=== PATIENT | female | born 1965 ===

== ENCOUNTER 2024-09-06 09:41 | Inpatient (IN) | payer BC, SELFPAY ==
[2024-08-27 08:09] VITALS: BMI 18.8
[2024-09-06] VITALS (11 sets, daily range): BP systolic 130–166; BP diastolic 63–93; PULSE 54–91; RESP 12–18; TEMP 36.4–37.9; O2SAT 92–99; BMI 18.8; BMI 19.3
--- NOTE | 2024-09-06 06:00 | DI.RAD.S_ITS ---
PROCEDURE: XR KNEE RT 1TO2V INDICATIONS: TKA TECHNIQUE: 2 view(s) of the knee acquired. COMPARISON: [facility] Gabriel Mendieta, CR, XR KNEE 4+ VIEWS RIGHT, 04/09/2024, 11:55. FINDINGS: Bones: Patient is status post knee joint arthroplasty. Hardware components are in expected positions. Visualized bony structures are intact. Soft tissues: Overlying postoperative changes are noted. IMPRESSION: Expected post-operative appearance of a knee arthroplasty. Dictated by: Xavi José M.D. on 09/06/2024 at 17:05 Approved by: Xavi José M.D. on 09/06/2024 at 17:06
[2024-09-06] MEDS: ACETAMINOPHEN 325 MG TABLET 975 MG PO (10:20)
[2024-09-06] MEDS: LACTATED RINGERS 1,000 ML 42 ML IV ×2 (10:20→14:10)
--- NOTE | 2024-09-06 12:16 | PM.PREOP ---
Pre-operative Note Interval Note History & Physical reviewed/Exam performed by Physician: Yes Changes to H&P: No
[2024-09-06] MEDS: CEFAZOLIN 2 GM/100 ML PREMIX 100 ML IV ×3 (12:45→23:28)
[2024-09-06] MEDS: TRANEXAMIC ACID 1,000 MG VIAL 1000 MG INJ ×2 (12:45→14:15)
--- NOTE | 2024-09-06 13:07 | SUR.OPER ---
Supine on padded OR bed. Pillow under head, arms secured on padded armboards <90 degree abduction. Safety belt across torso. Non-operative leg secured with tape over blanket over lower leg. Operative leg secured in DeMayo/Roosevelt/Nathe positioner. Foam padded brace at thigh of operative leg.
[2024-09-06] MEDS: VANCOMYCIN 1,000 MG VIAL 1000 MG TOP (13:45)
[2024-09-06] MEDS: ROPIVACAINE/EPI/CLONIDINE/KET 50 ML SYRINGE INJ (13:46)
[2024-09-06] MEDS: ACETAMINOPHEN IV 1,000 MG/100 ML VIAL 400 MG IV (17:05)
[2024-09-06] MEDS: hydrOXYzine HCL 25 MG TABLET 50 MG PO (17:10)
[2024-09-06] MEDS: OXYCODONE IR 5 MG TABLET PO (17:10)
--- NOTE | 2024-09-06 17:26 | P.OP_ITS ---
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 Revision of femoral and tibial component of right total knee arthroplasty (46497) 2. Intraosseous administration vancomycin (08889) 3. Removal of hardware from right femur (33972) 4. Prophylactic fixation of right femur (69223) Same procedure as scheduled: Yes Surgeon: Wesley Mendez Complex Manager: Myriam Donald Anesthesia Type: General, Peripheral nerve block and Local Operative Notes Estimated Blood Loss (mL): 350 Tourniquet time (min): 120 Procedure in detail: Revision of femoral and tibial components of right total knee arthroplasty for global instability and aseptic loosening of the tibial component using robotic assistance with removal of a prior interference screw from the femur and placement of a prophylactic cerclage cable on the femur Implants: * Size 4 Legion Oxinium femoral component with 10 mm augments distally on both the medial and lateral side, no posterior augments, and a 14 mm x 160 mm stem * Size 18 femoral cone * Kinamed Iso elastic cerclage cable * Size 4 Tibial Component with 14 mm x 120 mm stem * Size 18 mm constrained Amena 2 Polyethylene Insert * Retained Depuy Patella Procedure Summary: This 59-year-old female patient has had multiple 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 She had tested previously for Yanick Danlos and this came back as negative however she has had numerous orthopedic surgeries which have failed including an ACL reconstruction in this knee as well as shoulder and foot and ankle surgeries which have failed due to soft tissue laxity as well. She presented to me with global laxity of the knee with gross hyperextension and instability. We attempted to treat her instability with bracing however she did not tolerate this. We had a difficult decision to make with regards to whether or not to use a hinged total knee today. I discussed with her over multiple conversations that that would very reliably provide a knee construct that would not loosen over time as has occurred with her knee prior to this surgery however I was very concerned about the longevity of a hinged total knee in a patient of her age and activity levels. I inquired with multiple device manufacture's re garding whether or not there is a revision femur that would allow a modular conversion to a hinged total knee after the index procedure and determined that this is not something that is made by any company currently. This eliminated the possibility doing a standard articulation revision knee today and then having the ability to do a polyethylene exchange and insert an axle at some point in the future the marginally convert this to a hinge should this construct loosen. We therefore discussed the option of either a hinge or a standard articulation revision total knee today. After careful review of the relative merits of those options the patient elected to move forward with a revision total knee rather than a hinge. I did have a hinge on backup for today's case if I found that I was not able to achieve satisfactory stability but plan to use the most constrained polyethylene insert due to concerns that a hinged my not have satisfactory longevity for her. Intraoperatively today I utilized robotic assistance to plan out the resections on the femur and the tibia and 2 help achieve a balanced construct. The femur was removed with some bone loss anteriorly but no significant bone loss posteriorly and the robotic system actually planned for a femoral component that did not require any posterior augments in order to achieve good bony contact. 10 mm augments were necessary distally in order to fill up the extension gap. The tibia was completely de bonded from the cement and after freeing up the cement interface I noted that there was none remaining on the base plate when I removed it. The tibia was cut using navigation and dropped down below the planned cut in order to achieve a good bone implant interface. Cone and stem fixation were used on both sides in the cones were prepped free hand to allow them to orient themselves with the robotic guided resections rather than the anatomic axes of the femur and the tibia. She had previously had an ACL reconstruction which had failed and there was a screw left from this which would have interfered with the femoral cone so that was removed using a screwdriver. I trialed with multiple different sizes of polyethylene inserts and found that a 21 mm insert was too tight as it caused significant tension on the extensor mechanism in flexion and would have not allowed her to achieve full flexion. Given her soft tissue hypermobility I utilized the most constrained polyethylene insert in the system Procedure in Detail: The patient was met in the preoperative holding area the day of the procedure and all questions were answered. The patient?s nares were swabbed with betadine in order to decolonize them from MRSA. Informed consent was signed and the right limb was marked with indelible ink.? The patient was brought back to the operating room where anesthesia was induced. The patient was transferred to the operating table and all bony prominences were padded. The operative site was prepped and draped in the usual sterile fashion. A second prep stick was utilized following drape placement. The incision was marked corresponding to the medial aspect of the tibial tubercle and the cassia mejía. Ioban was wrapped circumferentially around the knee. Prior to incision, tranexamic acid and cefazolin were administered. Templating images were displayed. A timeout procedure was performed verifying the patient?s identity, medical comorbidities, allergies, relevant medications, anesthesia type and the surgical plan. All present were in agreement. The assistance of a physician assistant press operator offset was required for positioning, room setup, soft tissue retraction and wound closure. Without this assistance, the procedure would have been significantly more challenging and time consuming.?? The tourniquet was inflated prior to incision. An intraosseous needle was introduced following tourniquet inflation and 50 mL of dilute vancomycin was infiltrated into the osseous canal in order to back fill all of the soft tissues in the knee with vancomycin. I reused the old incision from the patient's prior total knee arthroplasty. I did not excise it as she is extremely thin and I did not want to excessively stretch her skin. I dissected through subcutaneous tissues down to the extensor mechanism and identified the lateral border of the VMO. I performed a medial parapatellar arthrotomy extending down to the tibial base plate and resected around medially performing a medial peel. I then brought the knee into extension and everted the patella and removed scar from around the old patellar implant. I confirmed that it was well fixed. Placed J Luis's on the medial and lateral gutters respectively and excise the gutters, sending each of them for culture. I do not anticipate that these cultures will result positive and did not note any signs of infection during inspection of the knee. I placed pins for the robotic arrays in the femur and the tibia in an area which would not interfere with placement of provisional trial implants. Registered all of the bony anatomy and implant anatomy using special points to micheal the bone implant interfaces on both sides. I then registered the motion of the knee. I noted that it had 12? of hyperextension and this aligned with my gross inspection. There was also gross varus and valgus instability throughout the entire arc of motion. Create a plan using the robotic system which would balanced the flexion extension gaps and result in symmetry between the medial and lateral compartments in flexion and extension. Confirmed implant positioning on the robotic array as well and determined that this would be appropriate for my intended construct. I then proceeded with implant removal. I used a micro sagittal saw to disrupt the bone implant interface in the femur. I noted that the femoral component was well fixed. I moved around the table as necessary to free up the entirety of the accessible areas of the femoral component and then used osteotomes to further disrupt and loosen the femoral component from the underlying bone. I was then able to create a gap between the femur and the femoral component. I used an osteotome to break off the rotating platform of the previously placed attune polyethylene insert and remove that, which created enough space for me to remove the femoral component by hand. I noted some remaining cement on the femur indicative of its appropriate fixation. There was no significant bone that came with the femoral component but I did note that the anterior cortex had poor bone quality and a very thin cortex consistent with the patient being a slender female. In order to prevent a femur fracture during the remainder of the surgery I passed a cerclage cable around the femur in the metaphysis and tensioned this using a tensioner, then cut the ends of the Kinamed cable using a scalpel. With the femoral component removed I then moved onto tibial component removal. I used a microsagittal saw to again disrupt the bone implant interface, and then used osteotomes to further freed up, and then passed a single sided reciprocating saw around posteriorly to free it up in that area. It seemed to be well fixed and so I carefully navigated around the entirety of the tibial base plate however when I began to remove it I noted that the tibia appeared to have simply been wedged in place and it was freed up without any cement coming with the tibial base plate, with the entire cement mantle remaining behind on the top of the tibia. I then used an osteotome to free up all of the cement in the canal and remove that cement. I noted while working in the canal that there was some old suture and soft tissue graft presumably from her remote ACL reconstruction. I removed this. The bony defects of the femur were then mapped corresponding to the planned implant based on the pre resection plan. I found that it would be necessary to utilize distal augments to recreate the joint line so 10 mm augments were selected on both the medial and lateral compartment and these were prepped using a bur. No augments were needed posteriorly as the point at which the implant had rested with the previous construct aligned very closely with the placement point of the intended revision construct so no posterior augments were utilized. I then prepped the tibia using navigation. I navigated the tibial cutting block into place corresponding to the varus valgus and slope angles which had been selected by the robotic plan. This did necessitate cutting more tibia then had initially been planned and I moved the array down slightly to ensure that I got a good bony interface with my saw cut. I pinned the cutting guide in place, placed retractors around the femur to protect all surrounding soft tissue stru ctures, and made that cut. I verified the cut using the robotic system. I placed trials in the femur and tibia corresponding to the sizes that had been selected by the robotic system. I trialed with various polyethylene thicknesses and found that I had hyperextension in the smaller sizes, with an excessively tight flexion gap with a 21 mm insert. An 18 mm insert resulted in a reading of 0? of hyperextension on the robotic system without the excess tightness flexion so I planned to utilize this based on those trials. I also trialed all parameters manually and found that the construct had appropriate gap symmetry and balance. I therefore removed all of the robotic arrays and began prepping for revision components. In order to achieve biologic fixation on the femur and tibia I prepared for cones on both sides. There was an old screw in the femoral canal which had to be removed to allow this to occur as it would have been in the way. I removed it using a screwdriver. A similar process was utilized for both which involved freehand reaming in the area where the trialed components sat, and then using hand broaches to prepare the bone interface for the specific geometry of the in tended cone. This was the smallest cone on the femoral side and the 2nd smallest cone on the tibial side. Trials were placed in both of these to ensure that my intended construct would fit through them appropriately and then I performed a final round of trialing which involved placement of stems on both the femur and the tibia. I was satisfied with this trial in all tested parameters. I then move forward with final implant insertion. All trial components were removed and the knee was soaked in a dilute mixture of Betadine and peroxide. The bony ends were irrigated. The cones were inserted into the femur and the tibia. A separate batch of cement was used for the tibia and femur respectively. I initially inserted cement down the tibial canal and on the tibial joint line as well as inside the cone to unitized it to the cone while ensuring that I did not put cement into the cone interface with the surrounding bone. I then placed the tibial component. After I had removed the cement surrounding the tibia I again irrigated the femur and then placed cement up the femoral canal as well as around the end of the femur. Placed this inside the cone so as to unitized the construct and ensured that the cement did not disrupt the interface between the femoral cone and the bone. The femoral component was impacted into place and a trial polyethylene insert was inserted in the knee was brought into full extension. Hemostasis was achieved and an additional Betadine soak was performed. A mixture of Ropivacaine, Epinephrine, Clonidine and Toradol was infiltrated throughout the soft tissues into structures including the VMO, patellar tendon, quadriceps tendon, MCL and femoral periosteum. A low adductor canal block was also performed using this mixture unless one had been placed preoperatively by anesthesia. The knee was copiously irrigated with pulse lavage. Once cement had been allowed to dry the knee was again trialed. Range of motion was assessed by ensuring the knee could achieve full extension and assessing maximum passive knee flexion by elevating the femur and allowing the heel to passively fall towards the buttock. Gap symmetry was assessed by stressing the medial and lateral compartments in both extension and flexion. Laxity was assessed in both extension and flexion and the polyethylene trial was adjusted with shims as necessary. Patellar tracking was assessed with knee flexion. The tourniquet was let down and the polyethylene trial was removed. I inspected the knee inspected for excess cement and any residual bleeding. Once hemostasis was achieved I inserted the final polyethylene and ensured appropriate engagement of the dovetail locking mechanism.?? The arthrotomy was closed with absorbable interrupted suture ensuring that this extended to the top of the arthrotomy. This was backed up with running barbed suture throughout the arthrotomy. The skin was closed with 2-0 and 3-0 sutures. Surgical glue was applied and a soft dressing was placed.?The sponge, instrument and needle counts were reported as being correct at the end of the case.??No obvious complications occurred. The patient was transferred from the operating table back to a stretcher. The patient emerged from anesthesia without difficulty and was taken to the PACU in a stable condition.? Plan for aftercare: * Weightbearing as tolerated * Aspirin 81 twice per day for DVT prophylaxis * Viv wound VAC in place. This should remain in place until follow up with us. The battery will after a week at which point the cord can be removed * Patient is unable to take NSAIDs so none will be given as part of her pain control regimen * Patient takes Humira and has held this for 2 dosages prior to surgery. We will have her with hold it for an additional 2 weeks postoperatively * Cefadroxil 500 mg twice per day for periprosthetic joint infection prophylaxis for 10 days * Follow cultures but do not anticipate these will resolve as positive * Multimodal pain regimen with no IV opioids ordered * Anticipate discharge home tomorrow * Follow up at [facility] in 2 weeks * Detailed postoperative instructions available at [email or web address]
[2024-09-06] MEDS: LACTATED RINGERS 1,000 ML 100 ML IV (18:07)
[2024-09-06] MEDS: GABAPENTIN 300 MG CAPSULE 900 MG PO (20:48)
[2024-09-06] MEDS: ACYCLOVIR 400 MG TABLET PO (20:48)
[2024-09-06] MEDS: BACLOFEN 10 MG TABLET PO (20:48)
[2024-09-06] MEDS: ASPIRIN EC 81 MG TABLET PO (20:48)
[2024-09-06] MEDS: DOCUSATE 100 MG CAPSULE PO (20:48)
[2024-09-06] MEDS: TRAZODONE 50 MG TABLET 200 MG PO (20:48)
[2024-09-07] MEDS: OXYCODONE IR 5 MG TABLET PO ×3 (00:10→20:41)
[2024-09-07 00:31] VITALS: BP 135/73; PULSE 60; RESP 18; TEMP 36.7; O2SAT 98
[2024-09-07 04:38] LABS: Hematocrit 32.1 % (36-46); Hemoglobin 10.7 g/dL (12.0-16.0)
[2024-09-07] MEDS: LACTATED RINGERS 1,000 ML 100 ML IV (04:51)
[2024-09-07] MEDS: ACETAMINOPHEN 325 MG TABLET 650 MG PO ×4 (04:51→23:51)
[2024-09-07 05:23] VITALS: BP 148/75; PULSE 64; RESP 18; TEMP 36.9; O2SAT 96
[2024-09-07 08:00] VITALS: BP 152/71; PULSE 62; RESP 16; TEMP 37.1; O2SAT 95
[2024-09-07] MEDS: CEFAZOLIN 2 GM/100 ML PREMIX 100 ML IV (08:11)
[2024-09-07] MEDS: ASPIRIN EC 81 MG TABLET PO ×2 (09:11→20:42)
[2024-09-07] MEDS: DULOXETINE 30 MG CAPSULE 60 MG PO (09:11)
[2024-09-07] MEDS: ACYCLOVIR 400 MG TABLET PO ×2 (09:11→20:41)
[2024-09-07] MEDS: GABAPENTIN 300 MG CAPSULE 900 MG PO ×3 (09:11→20:42)
[2024-09-07] MEDS: PANTOPRAZOLE DR 40 MG TABLET PO (09:11)
[2024-09-07] MEDS: FOLIC ACID 1 MG TABLET PO (09:12)
[2024-09-07] MEDS: DOCUSATE 100 MG CAPSULE PO ×2 (09:12→20:42)
[2024-09-07] MEDS: BACLOFEN 10 MG TABLET PO ×2 (09:12→20:41)
--- NOTE | 2024-09-07 09:31 | PM.PNPO.1 ---
Subjective Subjective Date Patient Seen: 09/07/24 Time Patient Seen: 09:31 Interval history: Patient is having severe right knee pain. Patient has been using bedside commode as she is too busy to get to the restroom. No nausea or vomiting. No shortness of breath or chest pain. Exam Vital Signs (past 8 hours): - 09/07/24 02:00 09/07/24 05:23 09/07/24 07:00 Temperature 98.5 F Pulse Rate 64 Respiratory Rate 18 Blood Pressure 148/75 H Pulse Oximetry 96 Oxygen Delivery Method Room Air Oxygen Flow Rate 0 0 09/07/24 08:00 Temperature 98.7 F Pulse Rate 62 Respiratory Rate 16 Blood Pressure 152/71 H Pulse Oximetry 95 Oxygen Delivery Method Oxygen Flow Rate 0 Oxygen Delivery Method Room Air Oxygen Flow Rate 0 Narrative Exam Narrative: 59-year-old female in no apparent distress. Right knee dressing is clean, dry and intact. Viv dressing is on and functioning. Motor functions intact bilateral lower extremities. Sensation grossly intact to light touch right lower extremity. Const General: cooperative and comfortable Nutritional Appearance: average body habitus Orientation: alert Resp Effort & Inspection: normal respiratory effort and able to speak in complete sentences Objective Labs 09/07/24 04:14 Labs: Laboratory Results - last 24 hr 09/07/24 04:14 Hgb 10.7 L Hct 32.1 L PFSH Medical History COVID-19 (10/2020) Hiatal hernia Anesthesia complication Chronic pain ADHD Rheumatoid arthritis Overactive bladder GERD (gastroesophageal reflux disease) IBS (irritable bowel syndrome) HTN (hypertension) Peripheral neuropathy Fibromyalgia Anxiety Depression Surgical History History of esophagogastroduodenoscopy (EGD) Hx of colonoscopy History of ankle surgery History of foot surgery Hx of repair of right rotator cuff (01/2023) History of meniscectomy of left knee Hx of right knee surgery Status post cervical spinal fusion (2008) Hx of laminectomy (1998) History of lumbar spinal fusion (2007) History of hysterectomy History of total right knee replacement (07/25/16) Social History household members: friend(s) Smoking Status: Never smoker alcohol intake: former Assessment & Plan Post-op Postoperative Procedures: Procedures Operation Date: 09/06/24 11:45 Actual Procedure Side Surgeon p Total Knee Arthroplasty Revision - Robot Right Wesley Mendez MD Postoperative day: 1 Postoperative status: marginal pain control Postoperative plan narrative: Weight-bearing as tolerated Aspirin 81 mg b.i.d. for DVT prophylaxis Patient unable to take NSAIDs so none prescribed Patient will hold Humira for additional 2 weeks postoperatively Cefadroxil 500 mg b.i.d. times 10 days to begin at discharge from hospital Multimodal pain management Follow cultures currently pending Follow up outpatient orthopedic clinic in 2 weeks as scheduled Disposition likely home tomorrow Quality VTE Deep Vein Thrombosis/Pulmonary Embolism Present on Admission: No
--- NOTE | 2024-09-07 10:37 | PT.IIE ---
Current Diagnoses Broken internal right knee prosthesis, initial encounter (09/06/24) Surgery Performed Operation Date: 09/06/24 11:45 Actual Procedures p Total Knee Arthroplasty Revision - Robot(Right) - Wesley Mendez MD Surgical History (Last Reviewed 09/07/24 @ 09:47 by Yunior Barbosa PA-C) History of ankle surgery History of esophagogastroduodenoscopy (EGD) History of foot surgery History of hysterectomy History of lumbar spinal fusion (2007) History of meniscectomy of left knee History of total right knee replacement (07/25/16) Hx of colonoscopy Hx of laminectomy (1998) Hx of repair of right rotator cuff (01/2023) Hx of right knee surgery Status post cervical spinal fusion (2008) Medical History (Last Reviewed 09/07/24 @ 09:47 by Yunior Barbosa PA-C) ADHD Anesthesia complication Anxiety Chronic pain COVID-19 (10/2020) Depression Fibromyalgia GERD (gastroesophageal reflux disease) Hiatal hernia HTN (hypertension) IBS (irritable bowel syndrome) Overactive bladder Peripheral neuropathy Rheumatoid arthritis Physical Therapy Inpatient Evaluation/Re-Eval M1 PT/OT-IP Prior Functional Status Start: 09/07/24 10:08 Freq: NEEDED Status: Active Protocol: Document 09/07/24 10:09 AMB (Rec: 09/07/24 10:25 AMB [id number]) Medical Review Prior Functional Status Medical History Reviewed Yes Communication WFL Mobility and Gait Pt was ambulating without AD but does have a history of multiple prior LE surgeries that limit her mobility at baseline Activities of Daily Living and IADL's independent Social History Household Members friend(s) Living Arrangements Apartment/Condo Number of Floors (Floors) One Floor Number of Stairs To Enter/Railing? 0 Home Equipment Four Wheel Walker Additional Social History Comment Pt lives with a roommate, but does not want to rely on that person for significant physical assistance M2 PT-IP Current Condition Start: 09/07/24 10:08 Freq: NEEDED Status: Active Protocol: Document 09/07/24 10:09 AMB (Rec: 09/07/24 10:25 AMB [id number]) Physical Therapy Current Condition Current Condition Evaluation Date 09/07/24 Treatment Diagnosis R TKA revision Onset Date 09/06/24 M3 PT-IP Subjective Start: 09/07/24 10:08 Freq: NEEDED Status: Active Protocol: Document 09/07/24 10:09 AMB (Rec: 09/07/24 10:25 AMB [id number]) Subjective Physical Therapy Visit Type Type Initial Evaluation Visit Start Time 09:30 Visit Stop Time 10:00 Physical Therapy Visit Comments Patient Comments Pt reports 6/10 pain but is willing to get up Therapy Pain Assessment Pain When Pain Assessed During Mobility Pain Present Pain Present Pain Reported Location right knee Intensity 6 Scale Used Numeric (0 - 10) Pain Management Techniques Apply Cold,Re-positioning, Timing of Activity with Medications M4 PT-IP Mobility and Gait Start: 09/07/24 10:08 Freq: NEEDED Status: Active Protocol: Document 09/07/24 10:09 AMB (Rec: 09/07/24 10:25 AMB [id number]) PT-Bed Mobility Assessment Rolling Type of Rolling Log Rolling Level of Assist Independent Supine to Sit Supine to Sit Independent Sit to Supine Sit to Supine Independent PT-Transfer Assessment Sit to and From Stand Sit to and from Stand Standby Assistance,1 Person Assistance,Use of Upper Extremities Equipment Transfer Assistive Device Gait Belt,Front Wheeled Walker Transfers Transfer Destination Bed,Chair,Toilet Transfer Technique Stand Step Pivot Transfer Ability Level of Assist Standby Assistance,1 Person Assistance,Use of Upper Extremities Comments Mobility Comments Nemo presents as anxious and painful but was independent with most bed mobility (using L LE to assist with moving R LE in bed.) She required SBA when moving from sit to stand from bed, toilet and chair. Gait Assessment Gait Gait Assistance Required: Contact Guard Assist Distance (Feet) 20 Assistive Devices Assistive Device Gait Belt,Front Wheeled Walker Gait Deviations General Gait Pattern Antalgic,Decreased Stride Length,Step-to Gait Factors Limiting Gait Function Factors Limiting Gait Function Decreased Activity Tolerance, Decreased Strength,Limited Range of Motion,Pain Comments Gait Comments Nemo ambulated around her room with FWW and CGA. She has chronic pain that limits her sitting tolerance in the chair. She was hesitant to walk for any distance due to the pain in her knee. After walking around her room with PT, PT assisted her back to bed, put ice machine back on her knee and left her with her call light. M5 PT-IP Objective Assessments Start: 09/07/24 10:08 Freq: NEEDED Status: Active Protocol: Document 09/07/24 10:09 AMB (Rec: 09/07/24 10:25 AMB [id number]) Orientation Orientation/Cognition Level of Alertness Alert Gross Range of Motion Lower Extremity ROM Assessment Right Impaired Strength Upper Extremity Strength Assessment Within Functional Limits Lower Extremity Strength Assessment Right Impaired M6 PT-IP Treatment Start: 09/07/24 10:08 Freq: NEEDED Status: Active Protocol: Document 09/07/24 10:09 AMB (Rec: 09/07/24 10:25 AMB [id number]) Physical Therapy Treatment Exercises Exercises Ankle Pumps,Quad Sets,Heel Slides Education Education Provided Precautions,Weight Bearing Status,Post-Op Packet,Safety M7 PT-IP Assessment and Plan Start: 09/07/24 10:08 Freq: NEEDED Status: Active Protocol: Document 09/07/24 10:09 AMB (Rec: 09/07/24 10:25 AMB [id number]) PT Summary Assessment and Plan Potential Rehabilitation Potential Good Status of Condition at Evaluation Stable Summary Impairments Pain,ROM,Strength,Balance,Gait ,Activity Tolerance Assessment Summary Nemo had a R TKA revision yesterday. She lives with a roommate, but is anxious regarding d/c back home given her pain. She was independent with bed mobility, but was limited with ambulation distance. Further physical therapy would be beneficial to assess safety with 4WW (and if unsafe assist with procurement of FWW) and to progress gait distance so that she can safely walk from her car to her condo. Goals Bed Mobility Goal Independent Transfer Goal Independent Gait Goal Independent,Four Wheel Walker Gait Distance 100 Days to Meet Goals 3 Frequency of Treatment Frequency Of Treatment Twice a Day Treatment Plan Physical Therapy Treatment Plan Bed Mobility Training,Transfer Training,Gait Training, Therapeutic Exercise Weight Bearing Status Weight Bearing Status Weight Bear as Tolerated Recommendations To Nursing Amount of Assist Needed 1 Person Assist Discharge Recommendations PT Discharge Recommendations Home Transportation Needs at Discharge Private Vehicle
[2024-09-07] MEDS: ONDANSETRON 4 MG ODT PO (10:48)
[2024-09-07] MEDS: ALPRAZolam 0.25 MG TABLET 0.5 MG PO (10:51)
[2024-09-07] MEDS: OXYCODONE IR 10 MG TABLET PO ×2 (10:51→16:10)
--- NOTE | 2024-09-07 11:30 | PT.IPTN ---
Current Diagnoses Broken internal right knee prosthesis, initial encounter (09/06/24) Surgery Performed Operation Date: 09/06/24 11:45 Actual Procedures p Total Knee Arthroplasty Revision - Robot(Right) - Wesley Mendez MD Physical Therapy Treatment Note M2 PT-IP Current Condition Start: 09/07/24 10:08 Freq: NEEDED Status: Active Protocol: Document 09/07/24 10:09 AMB (Rec: 09/07/24 10:25 AMB [id number]) Physical Therapy Current Condition Current Condition Evaluation Date 09/07/24 Treatment Diagnosis R TKA revision Onset Date 09/06/24 M3 PT-IP Subjective Start: 09/07/24 10:08 Freq: NEEDED Status: Active Protocol: Document 09/07/24 11:50 TS (Rec: 09/07/24 12:06 TS [id number]) Subjective Physical Therapy Visit Type Type Treatment Note Visit Start Time 11:30 Visit Stop Time 11:50 Number of SENIOR RESEARCH EXECUTIVE Visits 1 Physical Therapy Visit Comments Patient Comments Pt is agreeable to PT. Therapy Pain Assessment Pain When Pain Assessed During Mobility Pain Present Pain Present Pain Reported M4 PT-IP Mobility and Gait Start: 09/07/24 10:08 Freq: NEEDED Status: Active Protocol: Document 09/07/24 11:50 TS (Rec: 09/07/24 12:06 TS [id number]) PT-Bed Mobility Assessment Rolling Type of Rolling Log Rolling Level of Assist Independent Supine to Sit Supine to Sit Independent Sit to Supine Sit to Supine Independent Scooting Scooting to Edge of Bed Independent PT-Transfer Assessment Sit to and From Stand Sit to and from Stand Standby Assistance,1 Person Assistance,Use of Upper Extremities Equipment Transfer Assistive Device Gait Belt,Front Wheeled Walker Comments Mobility Comments Supine to sit Ind. STS with FWW SBA. pt ambulates with 4WW ~60' with emerging step thru gait. Pt ambulates back to the room, sit to supine into bed Ind. Pt was left in bed, all needs met. Gait Assessment Gait Gait Assistance Required: Contact Guard Assist Distance (Feet) 60 Assistive Devices Assistive Device Gait Belt,Front Wheeled Walker Gait Deviations General Gait Pattern Antalgic,Decreased Stride Length,Step-to Gait Factors Limiting Gait Function Factors Limiting Gait Function Decreased Activity Tolerance, Decreased Strength,Limited Range of Motion,Pain PT-Balance Assessment Sitting Balance and Reactions Static Sitting Balance Ability Good Dynamic Sitting Balance Ability Good Standing Balance and Reactions Static Standing Balance Ability Good Dynamic Standing Balance Ability Fair Device Used FWW M5 PT-IP Objective Assessments Start: 09/07/24 10:08 Freq: NEEDED Status: Active Protocol: Document 09/07/24 10:09 AMB (Rec: 09/07/24 10:25 AMB [id number]) Orientation Orientation/Cognition Level of Alertness Alert Gross Range of Motion Lower Extremity ROM Assessment Right Impaired Strength Upper Extremity Strength Assessment Within Functional Limits Lower Extremity Strength Assessment Right Impaired M6 PT-IP Treatment Start: 09/07/24 10:08 Freq: NEEDED Status: Active Protocol: Document 09/07/24 11:50 TS (Rec: 09/07/24 12:06 TS [id number]) Physical Therapy Treatment Education Education Provided Precautions,Weight Bearing Status,Post-Op Packet,Safety M7 PT-IP Assessment and Plan Start: 09/07/24 10:08 Freq: NEEDED Status: Active Protocol: Document 09/07/24 11:50 TS (Rec: 09/07/24 12:06 TS [id number]) PT Summary Assessment and Plan Potential Rehabilitation Potential Good Summary Impairments Pain,ROM,Strength,Balance,Gait ,Activity Tolerance Progress Towards Goals Progressing Toward Goals Assessment Summary Nemo is making progress with her mobility. She is Ind with all bed mobility. She progressed her gait ot ~60'SBA with 4WW. Educated and instructed pt in ther-ex. PT is recommending home with assist. Goals Bed Mobility Goal Independent Transfer Goal Independent Gait Goal Independent,Four Wheel Walker Gait Distance 100 Days to Meet Goals 3 Frequency of Treatment Frequency Of Treatment Twice a Day Treatment Plan Physical Therapy Treatment Plan Bed Mobility Training,Transfer Training,Gait Training, Therapeutic Exercise Weight Bearing Status Weight Bearing Status Weight Bear as Tolerated Recommendations To Nursing Amount of Assist Needed 1 Person Assist Discharge Recommendations PT Discharge Recommendations Home with Assistance Transportation Needs at Discharge Private Vehicle
[2024-09-07 12:00] VITALS: BP 147/74; PULSE 72; RESP 16; TEMP 36.6; O2SAT 98
--- NOTE | 2024-09-07 14:23 | CM.DANOTE ---
Patient is a 59 yo female who was admitted INPT Status on 09/06/24 for TKA revision. Pt has [employer] for insurance and her PCP is in [place] and not listed. EMR was reviewed. Per Ortho PA, pt tolerated procedure well and has family support and working on pain control and more mobility with PT before likely discharge home tomorrow Sun. Per PT, recommending home with assist and outpt PT. SW met bedside with pt and explained role and she confirms she lives in an apt in [place] with her roommate/friend Elise who is 70 yrs old and both are quite active and independent at baseline although pt has chronic pain issues and has had increased difficulty with ambulating leading up to her Total Knee revision. Pt typically drives and denies hx of HH or SNF. Pt confirms her initial d/c plan had been to stay with family on [facility] for increased assist for 2 weeks but pt is ambulating well with FWW and feels she can manage at home with some assist from her roommate and pt's son Ruddy has been up visiting from [place] for the holidays and he is a PT and plans to help get pt settled at home and help with some of her outpt PT exercises. Pt confirms that her preference is home tomorrow if she is stable and her roommate Elise will provide transport and her son will be available to assist as well to get settled at home. Pt does not anticipate any further needs at this time. Plan: SW to follow for plan of discharge home tomorrow Sun via her friend's POV and son assist and outpt PT. PATRICIA Morales Discharge Planning/Care Management CM Discharge Assessment Start: 09/07/24 14:21 Freq: Status: Active Protocol: Document 09/07/24 14:21 BF (Rec: 09/07/24 14:23 BF [id number]) Discharge Planning Assessment Assigned Threat Analyst PATRICIA Toledo DPOA/Assigned Designee Name son Ruddy Prieto in [place] Contact Information [phone] Advance Directives? No Advance Directives on File No History Provided By Patient,Medical Record Has Patient been admitted in last 30 No days? Prior Living Arrangements Apartment/Condo Household Members friend(s) Comment Roommate Elise Type of transporation used prior to Drives own vehicle admit Independent with ADL's Yes Is patient alert and oriented? Yes Caregiver for Another No Community Services used prior to Physical Therapy admission: DME Already Rented / Owned FWW / Walker Patient/Family Preference OP PT Therapy Barriers to Discharge No Discharge Plan Home Community Services Physical Therapy Transportation Arrangement roommate/friend Elise to provide transport home at d/c Referrals Initiated None needed Whiteboard Updated in Patient Room with Yes name and ext. # of Threat Analyst Review Status In Process Please Provide Date Initial DC 09/07/24 Assessment Was Performed Next Review Type Continued Stay Review Pre-Anesthesia Assessment Start: 08/27/24 08:09 Freq: Status: Complete Protocol: Document 08/27/24 08:09 [facility] (Rec: 08/27/24 08:21 [facility] [id number]) Pre-Anesthesia Assessment PAC Comment Phone assessment Preferred Name Diane Patient Information Reviewed Via Phone Assessment Assessment Completed With Patient Diagnostic Results BMP/CMP,CBC,EKG Comment Outside labs/EKG scanned Primary Care Provider Brook Mitchell Comment Pre-op 04/18/24, clearance form 04/09/24 scanned and in surgery folder Seen Specialist in Last 12 Months Yes Specialist Seen Orthopedist,Other Comment RA, GI Primary Language Macedonian Smooth [employer]r Worker Composites Required No Height 170.18 cm Weight 54.431 kg Body Mass Index (BMI) 18.8 Hearing Ability Normal Visual Assist Contacts,Glasses Dentition Type Teeth, Natural Present Hx Anesthesia Reactions Yes: PONV Hx Family Anesthesia Reaction No Hx Malignant Hyperthermia No Hx Blood Transfusions No Anesthesia Review Requested No Natural Gas Basis Trader No alcohol intake former Alcohol Intake Frequency Other: Stopped 2011 Smoking Status Never smoker Substance Use Type [#R] marijuana Comment Edibles Pain Present Pain Reported Musculoskeletal Symptoms Abnormal Gait,Back Pain, Difficulty Walking,Joint Pain, Neck Pain History of Falling (Recent or History of Yes ) Patient is completely paralyzed or No completely immobile Mental Status Oriented to own ability Is patient on oxygen? No Does patient have DAUGHERTY/SOB No Hx Sleep Apnea No Currently Taking a Beta Patti No Hx Chest Pain No Hx SOB No Hx Syncope or Dizziness Yes: Sometimes dizziness Anti-Coagulant Therapy No Has a Book Trimmer Yes: Follows every 5 years due to family history of CAD Cardiac Testing No Hx Pacemaker/ICD No Pacemaker Rep Required? No Cardiac Clearance Received No Diet Type At Home Regular Dysphagia Yes: I have to eat really slow Gastrointestinal Symptoms Abdominal Pain,Belching, Bloating,Constipation,Diarrhea ,Reflux Bladder Pattern Frequency,Incontinent,Urgency Urinary Catheter Present No Hx Urinary Self Catheterization No Diabetes No HgbA1C 5.6 Date 04/18/24 Patient No Lactating No Hx Drug Resistant Organism No Presence of External or Internal Medical Yes: Lumbar/cervical hardware, Devices feet, right knee Comment No covid symptoms x 2 months Marital Status Single Lives With other Current Living Arrangements Apartment/Condo Number of Floors (Floors) One Floor Support System Friend(s) Does the Patient Have Assistance After Yes: Roommate and friend will Surgery assist with care at DC Patient Discharge Plan Description Return Home,Other Comment Pt advised 1-3 night length of stay per surgeon's office Feels Safe in Current Environment Yes Been Physically Hurt or Threatened By a No Person in Current Environment Do you have thoughts of harming yourself None or others? Are you currently considering suicide? No Do you have a plan to hurt yourself or No Plan others? Do You Have Any Spiritual Beliefs That No May Affect Your HC Choices? Do You Have Any Cultural Practices That No May Affect Your HC Choices? Who Can We Speak to About Patient's Care Family, friends Identifying Code for Release of Patient Declines to issue Information Health Care Proxy/Next of Kin Ruddy (son) Health Care Proxy Emergency Contact Name Ruddy (son) Emergency Contact Advance Directives? No Power of Language Pathologist No PAC Instructions Do not shave/clip surgical site,Durable medical equipment ,Medications to take/avoid,No ETOH/petroleum product on skin DOS,NPO,Post-op transportation,Pre-surgical wash,Sensory aids,Sturdy shoes /comfortable clothes,Do not bring valuables and remove jewelry
[2024-09-07 20:00] VITALS: BP 178/85; PULSE 64; RESP 17; TEMP 36.8; O2SAT 94
[2024-09-07] MEDS: TRAZODONE 50 MG TABLET 200 MG PO (20:42)
[2024-09-08] VITALS: BP 158/85; PULSE 68; RESP 18; TEMP 36.7; O2SAT 93
[2024-09-08] MEDS: OXYCODONE IR 10 MG TABLET PO ×2 (03:38→09:19)
[2024-09-08 04:00] VITALS: BP 130/81; PULSE 64; RESP 16; TEMP 36.6; O2SAT 96
[2024-09-08 08:00] VITALS: BP 130/80; PULSE 75; RESP 17; TEMP 36.8; O2SAT 96
[2024-09-08] MEDS: ACYCLOVIR 400 MG TABLET PO (09:17)
[2024-09-08] MEDS: DOCUSATE 100 MG CAPSULE PO (09:18)
[2024-09-08] MEDS: PANTOPRAZOLE DR 40 MG TABLET PO (09:18)
[2024-09-08] MEDS: FOLIC ACID 1 MG TABLET PO (09:18)
[2024-09-08] MEDS: ASPIRIN EC 81 MG TABLET PO (09:18)
[2024-09-08] MEDS: GABAPENTIN 300 MG CAPSULE 900 MG PO (09:18)
[2024-09-08] MEDS: BACLOFEN 10 MG TABLET PO (09:18)
[2024-09-08] MEDS: DULOXETINE 30 MG CAPSULE 60 MG PO (09:19)
--- NOTE | 2024-09-08 10:48 | PT.IPTN ---
Current Diagnoses Broken internal right knee prosthesis, initial encounter (09/06/24) Surgery Performed Operation Date: 09/06/24 11:45 Actual Procedures p Total Knee Arthroplasty Revision - Robot(Right) - Wesley Mendez MD Physical Therapy Treatment Note M2 PT-IP Current Condition Start: 09/07/24 10:08 Freq: NEEDED Status: Active Protocol: Document 09/07/24 10:09 AMB (Rec: 09/07/24 10:25 AMB [id number]) Physical Therapy Current Condition Current Condition Evaluation Date 09/07/24 Treatment Diagnosis R TKA revision Onset Date 09/06/24 M3 PT-IP Subjective Start: 09/07/24 10:08 Freq: NEEDED Status: Active Protocol: Document 09/08/24 10:23 KS (Rec: 09/08/24 12:44 KS [id number]) Subjective Physical Therapy Visit Type Type Treatment Note Visit Start Time 10:23 Visit Stop Time 10:48 Number of BUDGET EXAMINER Visits 2 Physical Therapy Visit Comments Patient Comments Pt is agreeable to PT. M4 PT-IP Mobility and Gait Start: 09/07/24 10:08 Freq: NEEDED Status: Active Protocol: Document 09/08/24 10:23 KS (Rec: 09/08/24 12:44 KS [id number]) PT-Bed Mobility Assessment Rolling Type of Rolling Log Rolling Level of Assist Independent Supine to Sit Supine to Sit Independent Sit to Supine Sit to Supine Independent Scooting Scooting to Edge of Bed Independent PT-Transfer Assessment Sit to and From Stand Sit to and from Stand Standby Assistance,1 Person Assistance,Use of Upper Extremities Equipment Transfer Assistive Device Gait Belt,4 Wheeled Walker Transfers Transfer Destination Bed Transfer Technique ambulated Transfer Ability Level of Assist Standby Assistance,1 Person Assistance,Use of Upper Extremities Comments Mobility Comments Pt in bed upon arrival, agreeable to work with PT. Pt sup<>sit and scoots to edge of bed independently. SBA for sit<>stnd w/ 4WW. Pt ambulated ~45 ft in room w/ 4WW SBA before transferring back to bed. Discussed at home safety and exercises. Gait Assessment Gait Gait Assistance Required: Standby Assistance,1 Person Assist Distance (Feet) 45 Assistive Devices Assistive Device Gait Belt,4 Wheeled Walker Gait Deviations General Gait Pattern Antalgic,Decreased Stride Length,Step-to Gait Factors Limiting Gait Function Factors Limiting Gait Function Decreased Activity Tolerance, Decreased Strength,Limited Range of Motion,Pain Comments Gait Comments Pt ambulated slowly and cautiously w/ 4WW. she is still relaying heavily on BUE to off-weight RLE due to pain. Explained a fW might be a safer sit, pt will secure one from a facility in [place]. She feels ready ro return home with some assistance. Stair Climbing Assessment Comments Stair Climbing Comments no stairs at home. PT-Balance Assessment Sitting Balance and Reactions Static Sitting Balance Ability Good Dynamic Sitting Balance Ability Good Standing Balance and Reactions Static Standing Balance Ability Good Dynamic Standing Balance Ability Fair Device Used FWW M5 PT-IP Objective Assessments Start: 09/07/24 10:08 Freq: NEEDED Status: Active Protocol: Document 09/07/24 10:09 AMB (Rec: 09/07/24 10:25 AMB [id number]) Orientation Orientation/Cognition Level of Alertness Alert Gross Range of Motion Lower Extremity ROM Assessment Right Impaired Strength Upper Extremity Strength Assessment Within Functional Limits Lower Extremity Strength Assessment Right Impaired M6 PT-IP Treatment Start: 09/07/24 10:08 Freq: NEEDED Status: Active Protocol: Document 09/08/24 10:23 KS (Rec: 09/08/24 12:44 KS [id number]) Physical Therapy Treatment Exercises Exercises Ankle Pumps,Quad Sets,Heel Slides Education Education Provided Precautions,Weight Bearing Status,Post-Op Packet,Safety M7 PT-IP Assessment and Plan Start: 09/07/24 10:08 Freq: NEEDED Status: Active Protocol: Document 09/08/24 10:23 KS (Rec: 09/08/24 12:44 KS [id number]) PT Summary Assessment and Plan Potential Rehabilitation Potential Good Summary Impairments Pain,ROM,Strength,Balance,Gait ,Activity Tolerance Progress Towards Goals Progressing Toward Goals Assessment Summary Nemo is making progress with her mobility and is Ind with all bed mobility. She ambulated ~45 ft with 4WW. Educated and instructed pt in ther-ex. PT continues to reccommend home with assistance. Pt feels ready to return home today. Goals Bed Mobility Goal Independent Transfer Goal Independent Gait Goal Independent,Four Wheel Walker Gait Distance 100 Days to Meet Goals 3 Frequency of Treatment Frequency Of Treatment Twice a Day Treatment Plan Physical Therapy Treatment Plan Bed Mobility Training,Transfer Training,Gait Training, Therapeutic Exercise Weight Bearing Status Weight Bearing Status Weight Bear as Tolerated Recommendations To Nursing Amount of Assist Needed 1 Person Assist Discharge Recommendations PT Discharge Recommendations Home with Assistance Transportation Needs at Discharge Private Vehicle
[2024-09-08] MEDS: ACETAMINOPHEN 325 MG TABLET 650 MG PO (12:12)
--- NOTE | 2024-09-08 12:32 | PM.PN.1 ---
Subjective Subjective Interval history: PATIENT SUMMARY: The patient is in the hospital after a revision, a total arthroplasty performed two days ago, and is preparing for discharge. SUBJECTIVE: The patient reported some instability when standing and attributed difficulty in assessing stability to pain. The patient experienced dizziness during a previous hospital stay but reported that this has not occurred this time. The patient noted that blood pressure was high yesterday but expressed no concern as it was managed accordingly. The patient discussed pain management, noting the use of 10 mg pain medication in the hospital and plans to switch to 5 mg at home. The patient expressed concern about long-term pain management and was advised on de-escalating doses. Regarding icing, the patient received conflicting advice on duration but was reassured that icing helps reduce swelling and pain. OBJECTIVE: Operative extremity sciatic nerve function intact. Mitchell wrap in place. Ice in place. Foot warm and well perfused. No visible spotting on the dressing. Viv in place with good seal ASSESSMENT: The patient was assessed post-revision total arthroplasty. The main concern was managing post-operative pain and ensuring stability of the joint. The patient's report of high blood pressure was noted but not considered critical. The lack of dizziness this round was positive, indicating better management of the patient's condition compared to past procedures. The discussion on icing was reviewed to ensure proper post-operative care. PLAN: Treatment: - The patient was advised to continue using Oxycodone, starting with 5 mg doses at home and adjusting as necessary. - Humira was to be withheld until the follow-up visit for wound evaluation. Tests: - None specified. Patient Education: - The patient was instructed on the use of a wound vac and was informed not to restart Humira until cleared in the clinic. - The patient was advised on the use of ice to manage pain and swelling and reassured that excessive icing is not a concern unless frostbite occurs. Follow-Up: - The patient was instructed to follow up at the clinic for a wound check before restarting Humira. Disposition: - The patient was prepared for discharge with appropriate instructions for home care and medication management. Exam Vital Signs (past 8 hours): - 09/08/24 08:00 09/08/24 10:41 Temperature 98.2 F Pulse Rate 75 Respiratory Rate 17 Blood Pressure 130/80 Pulse Oximetry 96 Oxygen Delivery Method Room Air Oxygen Flow Rate 0 Oxygen Delivery Method Room Air Oxygen Flow Rate 0 Objective Labs 12/28/24 04:14 [facility] Medical History COVID-19 (10/2020) Hiatal hernia Anesthesia complication Chronic pain ADHD Rheumatoid arthritis Overactive bladder GERD (gastroesophageal reflux disease) IBS (irritable bowel syndrome) HTN (hypertension) Peripheral neuropathy Fibromyalgia Anxiety Depression Surgical History History of esophagogastroduodenoscopy (EGD) Hx of colonoscopy History of ankle surgery History of foot surgery Hx of repair of right rotator cuff (01/2023) History of meniscectomy of left knee Hx of right knee surgery Status post cervical spinal fusion (2008) Hx of laminectomy (1998) History of lumbar spinal fusion (2007) History of hysterectomy History of total right knee replacement (07/25/16) Social History household members: friend(s) Smoking Status: Never smoker alcohol intake: former Assessment & Plan Time-Based Coding :: [TOTAL MINUTES] spent with patient and on the chart (including review of chart, obtaining history, exam, reviewing outside data, placing orders, documenting exam and treatment plan, and counseling patient) on [DATE]. Quality VTE Deep Vein Thrombosis/Pulmonary Embolism Present on Admission: No
[2024-09-08 12:39] VITALS: BP 146/76; PULSE 71; RESP 18; TEMP 36.6; O2SAT 97
--- NOTE | 2024-09-08 13:27 | PC.NURSE ---
Pt agreeable to discharge. Follow up appointment scheduled. IV discontinued, education provided to pt on follow up appt, medications, dressing care, and stroke s/s. Pt wheeled via w/c to private vehicle at approximately 1310.
== END 2024-09-08 13:10 | disposition home or self-care (01) | DRG 468 ==
PROVIDERS: Admitting Provider Orthopaedic Surgery Adult Reconstructive Orthopaedic Surgery; Referring Provider Orthopaedic Surgery Adult Reconstructive Orthopaedic Surgery; Visit Provider Orthopaedic Surgery Adult Reconstructive Orthopaedic Surgery
PROC: 0SPC0JZ Removal of Synthetic Substitute from Right Knee Joint, Open Approach (ICD-10-PCS; principal; 2024-09-06 11:45)
DX: T84.022A Instability of internal right knee prosthesis, initial encounter (principal); T84.032A Mechanical loosening of internal right knee prosthetic joint, initial encounter; M06.9 Rheumatoid arthritis, unspecified; Y79.2 Prosthetic and other implants, materials and accessory orthopedic devices associated with adverse incidents; Z79.69 Long term (current) use of other immunomodulators and immunosuppressants
CPT/HCPCS: 36415; 73560; 85014; 85018; 87070; 87075; 87205; 97110; 97116; 97161; 97530; A9270; J0134; J0330; J0690; J1100; J1171; J2250; J2405; J2704; J3010